=== PATIENT | female | born 1980 | race Caucasian/White ===

== ENCOUNTER → 2016-11-23 | Outpatient (CLI) | payer BC ==
[~2016-11-23] MED LIST: ALBUTEROL17 GM INH; CELEXA20 MG PO; LEVAQUIN750 MG PO; PHENERGAN W/CO120 ML PO; PREDNISONE; SYNTHROID175 MCG PO; VICODIN 5/1 TAB 5/50 PO
== END | disposition home or self-care (01) ==
LOC: CLAB 10:00
DX: E03.9 Hypothyroidism, unspecified (principal)
CPT/HCPCS: 36415; 84443